=== PATIENT | female | born 1955 | race Hispanic/Latino ===

== ENCOUNTER 2018-08-22 10:35 | Emergency (ER) | payer OTHER ==
[2018-08-22 10:35] VITALS: BMI 36.9
[2018-08-22 10:39] VITALS: O2SAT 99
--- NOTE | 2018-08-22 11:01 | ED PDOC ---
Lower Extremity Pain/Injury Time Seen by Provider: 08/22/18 10:46 Chief Complaint (Nursing): Lower Extremity Problem/Injury History Per: Patient Onset/Duration Of Symptoms: Days (7) Current Symptoms Are (Timing): Still Present Severity: Moderate Additional Complaint(s): Pain right knee x 1 week. No injury. Has had chronic pain over many months and is being treated for arthritis. Also c/o right foot pain worse over past week. No injury. Has been treating with devon díaz. Past Medical History Vital Signs: Last Vital Signs Temp 97.7 F 08/22/18 10:38 Pulse 102 H 08/22/18 10:38 Resp 20 08/22/18 10:38 BP 155/102 H 08/22/18 10:38 Pulse Ox 99 08/22/18 10:38 - Medical History PMH: Arthritis, Back Problems, Dementia, Chronic Pain - Family History Family History: States: Unknown Family Hx - Immunization History Hx Tetanus Toxoid Vaccination: No Hx Influenza Vaccination: No Hx Pneumococcal Vaccination: No - Home Medications Home Medications: Ambulatory Orders Medication Instructions Recorded Diclofenac Sodium 06/12/18 Famotidine [Pepcid] 20 mg PO BID #20 tab 06/12/18 Nitrofurantoin Macrocrystals 1 cap PO BID #14 cap 07/02/18 [Macrobid] Polyethylene Glycol 3350 [Miralax] 17 gm PO DAILY PRN #20 packet 07/02/18 Naproxen [Naprosyn] 500 mg PO Q12H #20 tab 08/22/18 - Allergies Allergies/Adverse Reactions: Allergies Allergy/AdvReac Type Severity Reaction Status Date / Time No Known Allergies Allergy Verified 08/22/18 10:50 Review of Systems ROS Statement: Except As Marked, All Systems Reviewed And Found Negative Constitutional: Negative for: Fever Musculoskeletal: Positive for: Back Pain, Leg Pain, Foot Pain Neurological: Negative for: Weakness, Numbness Physical Exam - Reviewed Nursing Documentation Reviewed: Yes Vital Signs Reviewed: Yes - Physical Exam Appears: Positive for: Non-toxic, No Acute Distress Head Exam: Positive for: ATRAUMATIC, NORMAL INSPECTION, NORMOCEPHALIC Skin: Positive for: Normal Color, Warm, DRY Eye Exam: Positive for: EOMI, Normal appearance, PERRL ENT: Positive for: Normal ENT Inspection Neck: Positive for: Normal, Painless ROM Cardiovascular/Chest: Positive for: Regular Rate, Rhythm Respiratory: Positive for: CNT, Normal Breath Sounds Pulses-Dorsalis Pedis (L): 2+ Pulses-Dorsalis Pedis (R): 0 Pulses-Post. Tibialis (L): 1+ Pulses-Post. Tibialis (R): 0 Gastrointestinal/Abdominal: Positive for: Normal Exam, Soft Back: Positive for: Normal Inspection. Negative for: Vertebral Tenderness Extremity: Positive for: Other (Right knee. No swelling or deformity. Pain on range of motion. Feet, warm ruborous. No tenderness to palpation) Neurological/Psych: Positive for: Awake, Alert, Normal Tone. Negative for: Motor/Sensory Deficits - Laboratory Results Result Diagrams: 08/22/18 11:00 08/22/18 11:00 - ECG O2 Sat by Pulse Oximetry: 99 Disposition - Clinical Impression Clinical Impression: Osteoarthritis, Peripheral vascular disease - Patient ED Disposition Is Patient to be Admitted: No Counseled Patient/Family Regarding: Studies Performed, Diagnosis, Need For Followup, Rx Given - Disposition Referrals: [facility] [Outside] Disposition: Routine/Home Disposition Time: 14:09 Condition: FAIR Prescriptions: Naproxen [Naprosyn] 500 mg PO Q12H #20 tab Instructions: Osteoarthritis, Peripheral Vascular (Arterial) Disease (DC) Forms: [employer] ([place])
[2018-08-22 11:19] LABS: BASO % 0.3 % (0.0-2.0); EOS % 0.4 % (0.0-4.0); HEMOGLOBIN 14.2 g/dL (12.0-16.0); LYMPH # 1.3 K/uL (1.0-4.3); LYMPH % 31.1 % (20.0-40.0); MEAN CELL VOLUME 88.3 fl (81.0-99.0); MEAN CORPUSCULAR HEMOGLOBIN 30.8 pg (27.0-31.0); MEAN CORPUSCULAR HGB CONC 34.8 g/dL (33.0-37.0); MEAN PLATELET VOLUME 6.7 fl (7.2-11.7); MONO # 0.3 K/uL (0.0-0.8); MONO % 7.2 % (0.0-10.0); NEUT # 2.5 K/uL (1.8-7.0); NRBC % 0.2 % (0.0-0.0); RBC 4.63 Mil/uL (3.80-5.20); RED CELL DISTRIBUTION WIDTH 14.2 % (11.5-14.5); WHITE BLOOD COUNT 4.1 K/uL (4.8-10.8)
[2018-08-22 11:25] LABS: INR 1.1; PROTHROMBIN TIME 12.8 Seconds (9.8-13.1)
[2018-08-22 11:29] LABS: ALB/GLOB RATIO 1.3 (1.0-2.1); ALBUMIN 4.5 g/dL (3.5-5.0); ALT/SGPT 23 U/L (9-52); AST/SGOT 20 U/L (14-36); BLOOD UREA NITROGEN 14 mg/dl (7-17); CALCIUM 11.3 mg/dL (8.4-10.2); GFR NON-AFRICAN AMERICAN > 60
--- NOTE | 2018-08-22 13:19 | RAD ---
Date of service: 08/22/2018 PROCEDURE: Right Knee Radiographs. HISTORY: pain COMPARISON: None. TECHNIQUE: 2 views obtained. FINDINGS: BONES: No interval acute cardiopulmonary disease appreciated. JOINTS: Articular cortical sclerosis and joint space narrowing are appreciated at the patellofemoral and medial femorotibial compartments more so than lateral femorotibial compartments with limited osteophyte development at the patellofemoral compartment compatible with moderate osteoarthritis. JOINT EFFUSION: None. OTHER FINDINGS: Diffuse osteopenia suggests osteoporosis. IMPRESSION: No acute fracture, subluxation or dislocation. Moderate osteoarthritis, tricompartmental. Diffuse osteopenia suggests osteoporosis.
--- NOTE | 2018-08-22 14:01 | US ---
Date of service: 08/22/2018 PROCEDURE: Duplex ultrasound of the bilateral lower extremity arteries. HISTORY: Foot pain decreased pulses R<L COMPARISON: None available. TECHNIQUE: Grayscale and duplex Doppler evaluation of the bilateral common femoral, superficial femoral, popliteal, posterior tibial and dorsalis pedis arteries was performed.. FINDINGS: RIGHT LOWER EXTREMITY: RIGHT COMMON FEMORAL ARTERY: Widely patent. Maximal flow velocity of 120.8 cm/s. Triphasic spectral pattern. RIGHT SUPERFICIAL FEMORAL ARTERY: Widely patent. Maximal flow velocity of 134.0 cm/s. Triphasic spectral pattern. RIGHT POPLITEAL ARTERY:Widely patent. Maximal flow velocity of 108.1 cm/s. Triphasic spectral pattern. RIGHT POSTERIOR TIBIAL ARTERY: Patent with mild to moderate arterial disease likely. Maximal flow velocity of 42.1 cm/s. Biphasic spectral pattern. RIGHT ANTERIOR TIBIAL ARTERY: Patent with mild to moderate arterial disease likely. Maximal flow velocity of 40.3 cm/s. Biphasic spectral pattern. RIGHT DORSALIS PEDIS ARTERY: Patent with mild to moderate arterial disease likely. Maximal flow velocity of 30.7 cm/s. Biphasic spectral pattern. LEFT LOWER EXTREMITY: LEFT COMMON FEMORAL ARTERY: Widely patent. Maximal flow velocity of 143.0 cm/s. Triphasic spectral pattern. LEFT SUPERFICIAL FEMORAL ARTERY: Widely patent at proximal and mid segments with [id number] stenosis potentially present transitioning to the distal SFA. Maximal flow velocity of 123.8 cm/s. Triphasic spectral pattern. LEFT POPLITEAL ARTERY:Patent with [id number] disease centrally. Maximal flow velocity of 97.3 cm/s. Biphasic spectral pattern. LEFT POSTERIOR TIBIAL ARTERY: Severely diseased though likely patent. Maximal flow velocity of 45.6 cm/s. Monophasic spectral pattern. RIGHT ANTERIOR TIBIAL ARTERY: Patent with [id number] disease likely. Maximal flow velocity of 59.9 cm/s. Biphasic spectral pattern. LEFT DORSALIS PEDIS ARTERY: Patent with [id number] disease likely. Maximal flow velocity of 20.0 cm/s. Biphasic spectral pattern. OTHER FINDINGS: None. IMPRESSION: 1. Severe arterial disease likely at the left posterior tibial artery though otherwise mild to moderately diseased runoff bilaterally. 2. No severe stenosis bilateral groin CT's as discussed above.
[2018-08-22 20:11] VITALS: BP 132/88; PULSE 91; RESP 18; TEMP 98
== END 2018-08-22 19:40 | disposition home or self-care (01) ==
LOC: H.ER 10:35
DX: M17.11 Unilateral primary osteoarthritis, right knee (principal); I73.9 Peripheral vascular disease, unspecified; G89.29 Other chronic pain; F03.90 Unspecified dementia, unspecified severity, without behavioral disturbance, psychotic disturbance, mood disturbance, and anxiety

== ENCOUNTER 2018-09-04 11:14 | Emergency (ER) | payer OTHER ==
[2018-09-04 11:14] VITALS: BMI 36.9
--- NOTE | 2018-09-04 12:18 | ED PDOC ---
Lower Extremity Pain/Injury Time Seen by Provider: 09/04/18 12:05 Chief Complaint (Nursing): Lower Extremity Problem/Injury Chief Complaint (Provider): Right Knee Pain History Per: Patient History/Exam Limitations: no limitations Onset/Duration Of Symptoms: Days (chronic), Worse Since (x2) Current Symptoms Are (Timing): Still Present Additional Complaint(s): 63 year old female presents to the ED for evaluation of increased right knee pain. Patient reports having a history of arthritis and usually takes Tylenol extra strength for improvement, but states she did not take it today because it has not been helping. She was seen here 08/22 for the same complaint, which at the time she had a doppler and XR of right knee with were both negative for any occlusions or fractures respectively, just showing arthritis. Today, she reports calling the EMS because the pain worsened and felt as if her legs are stiff. Yesterday, she notes seeing podiatry who cut her bilateral toenails and told her that the redness to her feet are normal. Otherwise, denies fever, itchiness, and injury. Additionally, patient also is complaining that her feet are cold. Of note, patient has a home health aid that comes to her home to give her sponge bathes, so she rarely puts weight on her knees. PMD: Shaik Richardson Past Medical History Reviewed: Historical Data, Nursing Documentation, Vital Signs Vital Signs: Last Vital Signs Temp 97.8 F 09/04/18 11:25 Pulse 100 H 09/04/18 11:25 Resp 16 09/04/18 11:25 BP Pulse Ox 98 09/04/18 11:25 - Medical History PMH: Anxiety, Arthritis, Back Problems, Dementia, Chronic Pain - Surgical History Surgical History: Back Surgery - Family History Family History: States: Unknown Family Hx - Social History Current smoker - smoking cessation education provided: No Alcohol: None Drugs: Denies - Immunization History Hx Tetanus Toxoid Vaccination: No Hx Influenza Vaccination: No Hx Pneumococcal Vaccination: No - Home Medications Home Medications: Ambulatory Orders Medication Instructions Recorded Diclofenac Sodium 06/12/18 Famotidine [Pepcid] 20 mg PO BID #20 tab 06/12/18 Nitrofurantoin Macrocrystals 1 cap PO BID #14 cap 07/02/18 [Macrobid] Polyethylene Glycol 3350 [Miralax] 17 gm PO DAILY PRN #20 packet 07/02/18 Naproxen [Naprosyn] 500 mg PO Q12H #20 tab 08/22/18 Naproxen 500 mg PO Q12H PRN #30 ect 09/04/18 - Allergies Allergies/Adverse Reactions: Allergies Allergy/AdvReac Type Severity Reaction Status Date / Time No Known Allergies Allergy Verified 08/22/18 10:50 Review of Systems ROS Statement: Except As Marked, All Systems Reviewed And Found Negative Constitutional: Negative for: Fever Musculoskeletal: Positive for: Other (right knee pain) Skin: Positive for: Other (redness and cold feeeling to bilateral feet) Physical Exam - Reviewed Nursing Documentation Reviewed: Yes Vital Signs Reviewed: Yes - Physical Exam Appears: Positive for: Uncomfortable Head Exam: Positive for: ATRAUMATIC, NORMOCEPHALIC Eye Exam: Positive for: Normal appearance Neck: Positive for: Normal, Painless ROM, Supple Cardiovascular/Chest: Positive for: Regular Rate, Rhythm Respiratory: Positive for: Normal Breath Sounds. Negative for: Respiratory Distress Gastrointestinal/Abdominal: Positive for: Normal Exam, Soft. Negative for: Tenderness Extremity: Positive for: Other (DP pulses decreased bilaterally, more to right than left (found to be nml per last dopple); bilateral feet cold to touch with some erythema, equal; temperature normal and equal to bilateral knees without any swelling, or obvious injuries.). Negative for: Normal ROM (limited ROM to bilateral knees, more to right due to pain) Neurological/Psych: Positive for: Awake, Alert, Oriented (x3) - ECG O2 Sat by Pulse Oximetry: 98 (RA) Pulse Ox Interpretation: Normal Medical Decision Making Medical Decision Making: Time: 1209 Initial Impression: chronic knee pain Initial Plan: --Toradol 30mg IM --Reevaluation 1310 Upon reevaluation, patient still reporting pain, but has increased ROM to the right knee. Due to persistent pain, Tramadol 50mg PO ordered. Will reevaluate. 1417 DP pulses confirmed with doppler done by myself. Raz bandage applied by me to right knee, and educated pt on further care. Patient stable for d/c home on Naproxen 500 q12. Transportation home will be arranged by HARRY Coburn. Advised patient to follow up with PMD for possible reinstated PT at home. Return parameters discussed. 16:36 I called and spoke with Dr. Richardson, patient's PMD. I let him know that she is here complaining of chronic pain. I told him about her physical exam, her treatment received today. Dr. Richardson agreed that the patient can go home. He states that he hasn't seen the patient in 4/5 months and she needs to see him so he can refer her to physical therapy. If patient does not want to leave he suggested I call [facility] to admit her for 24 hours. Patient states that she wants to go home and get better. Patient was advised to call office to make an appointment. Patient will have an ambulance provided to take her home. 18:15: [facility] care picked up patient in wheelchair. Patient assisted to chair with no difficulty. Scribe Attestation: Documented by Gisselle Dexter, acting as a scribe for Julia Pendleton APN. Provider Scribe Attestation: All medical record entries made by the Scribe were at my direction and personally dictated by me. I have reviewed the chart and agree that the record accurately reflects my personal performance of the history, physical exam, medical decision making, and the department course for this patient. I have also personally directed, reviewed, and agree with the discharge instructions and disposition. Disposition - Clinical Impression Clinical Impression: Knee pain, chronic, Arthritis of knee - Patient ED Disposition Is Patient to be Admitted: No Counseled Patient/Family Regarding: Diagnosis, Need For Followup, Rx Given - Disposition Referrals: Aj Henry MD [Staff Provider] - Disposition: Routine/Home Disposition Time: 14:00 Condition: STABLE Prescriptions: Naproxen 500 mg PO Q12H PRN #30 ect PRN Reason: Pain, Moderate (4-7) Instructions: Knee Pain (DC) Print Language: SINHALA - POA Present On Arrival: None
[2018-09-04 15:10] VITALS: PULSE 81; RESP 18; TEMP 98
[2018-09-04 18:44] VITALS: BP 128/72
[2018-09-04 19:04] VITALS: O2SAT 98
== END 2018-09-04 18:07 | disposition home or self-care (01) ==
LOC: H.ER 11:14
DX: M25.561 Pain in right knee (principal); F03.90 Unspecified dementia, unspecified severity, without behavioral disturbance, psychotic disturbance, mood disturbance, and anxiety; F41.9 Anxiety disorder, unspecified
CPT/HCPCS: 96372; 99283; J1885